=== PATIENT | male | born 1995 | race African-American/Black ===

== ENCOUNTER 2024-06-12 06:33 | Emergency (ER) | payer SELFPAY ==
[~2024-06-12] VITALS: Ht 172.7 cm; Wt 130.9 kg
[2024-06-12] MEDS ORDERED: AMOX875T2 PO (07:02)
[2024-06-12] MEDS: ACETAMINOPHEN 325 MG TAB PO ONE (07:07)
[2024-06-12] MEDS: AUGMENTIN 875 MG TAB PO ONE (07:07)
[2024-06-12 07:46] VITALS: BP 128/75; TEMP 97; O2SAT 97
== END 2024-06-12 07:48 | disposition home or self-care (01) ==
LOC: M ED 06:33
DX: K08.89 Other specified disorders of teeth and supporting structures (principal); Z79.2 Long term (current) use of antibiotics